=== PATIENT | female | born 1955 | race Caucasian/White ===

== ENCOUNTER 2023-06-14 08:20 | Day surgery (SDC) | payer MEDICARE, SELFPAY ==
[2023-06-13 14:20] VITALS: BMI 31.8
[2023-06-14] VITALS (10 sets, daily range): BP systolic 114–149; BP diastolic 72–96; PULSE 66–85; RESP 14–18; TEMP 36.4; O2SAT 97–100; BMI 33.0
[2023-06-14 09:03] LABS: Basophils Percent Auto 0.3 % (0.2-1.2); Eosinophils Absolute Auto 0.1 K/mm3 (0-0.3); Eosinophils Percent Auto 1.3 % (0-4.4); Hematocrit 43.9 % (37.0-47.0); Hemoglobin 14.1 g/dL (12.0-15.0); Immature Granulocyte Absolute 0.04 K/mm3 (0.00-0.031); Immature Granulocyte Percent A 0.4 % (0-0.5); Lymphocytes Absolute Auto 1.93 K/mm3 (0.9-3.2); Lymphocytes Percent Auto 20.9 % (18.3-44.2); Mean Corpuscular HGB Conc 32.1 g/dl (32-36); Mean Corpuscular Hemoglobin 29.9 pg (26-34); Mean Corpuscular Volume 93.2 fl (80-100); Mean Platelet Volume 10.9 fl (7.4-10.4); Monocytes Absolute Auto 0.9 K/mm3 (0.1-0.6); Monocytes Percent Auto 10.2 % (2.6-8.5); Neutrophils Absolute Auto 6.2 K/mm3 (1.3-6.7); Neutrophils Percent Auto 66.9 % (45.5-73.1); Platelet Count Result 269 k/mm3 (150-375); Red Blood Count 4.71 M/mm3 (4.2-5.4); Red Cell Distribution Width 13.2 % (11.5-14.5); White Blood Count 9.3 K/mm3 (4.5-10.0)
[2023-06-14 09:15] LABS: Anion Gap 7 mmol/L (8-16); Blood Urea Nitrogen 9 mg/dL (7-17); Calcium 9.6 mg/dL (8.4-10.2); Carbon Dioxide 24 mmol/L (22-30); Chloride 109 mmol/L (98-107); Estimated CRCL calculation 81 ml/min; Estimated Glomerular Filt Rate > 60; Glucose 113 mg/dL (65-110); Sodium 140 mmol/L (137-145)
--- NOTE | 2023-06-14 09:38 | WPDHPUPDATE1 ---
History and Physical Update Update Date/Time: 06/14/23 09:38 History and Physical has been reviewed, including an updated exam of the patient. There are NO changes in the patient's condition. Risks, benefits, and alternatives have been discussed and questions answered. Patient agrees to proceed with procedure.
--- NOTE | 2023-06-14 09:38 | WPDMODSED ---
Moderate Sedation Note-Pt Data Patient Data Diagnosis: Abnormal CCTA Present Complaint: Abnormal CCTA Procedure to be performed/Plan: Coronary angiography, left heart cath, +/- PCI Allergies Allergy/AdvReac Type Severity Reaction Status Date / Time No Known Allergies Allergy Verified 06/14/23 08:35 Home Medications Medication Instructions Recorded Confirmed Type gabapentin 300 mg capsule 600 mg PO HS 11/03/20 06/13/23 History letrozole 2.5 mg tablet 2.5 mg PO DAILY 11/03/20 06/13/23 History omeprazole 20 mg capsule,delayed 20 mg PO DAILY 11/03/20 06/13/23 History release cyanocobalamin (vitamin B-12) 2,000 mcg PO DAILY 11/16/20 06/13/23 History 2,000 mcg tablet ergocalciferol (vitamin D2) 25,000 50,000 unit PO WEEKLY 11/16/20 06/13/23 History unit capsule levothyroxine 125 mcg tablet 100 mcg PO DAILY 11/16/20 06/13/23 History amlodipine 5 mg-valsartan 160 mg 1 tablet PO DAILY 06/13/23 06/13/23 History tablet metoprolol succinate 50 mg 50 mg PO DAILY 06/13/23 06/13/23 History tablet,extended release 24 hr Sedation/Anesthesia: No previous sedation/anesthesia problems (including family history). [facility] Family History Family History Father Alcoholism Heart disease Mother Hypertension Heart disease Grandparent Heart disease Social History Social History Smoking status: Never smoker Second hand tobacco smoke exposure: No Alcohol intake: never Substance use: never Substance use type: does not use Living arrangements: with family Spiritual care concerns: No Mod Sed Physical Exam Physical Exam Pre Procedural Exam: Normal: Appearance, Lungs, Heart Rate, Heart Rhythm, Neuro Exam, Abdomen, Extremities and Skin Hours since solid foods: 12 Hours since liquid intake: 8 Mallampati Classification: class III Internal Medicine - PN: Obj Da Vital Signs Vital Signs: Vital Signs - 24 hr 06/14/23 08:37 Temperature 36.4 C Pulse Rate 74 Respiratory Rate 16 Blood Pressure 149/96 H Pulse Oximetry 98 Oxygen Delivery Room Air Labs 06/14/23 08:40 06/14/23 08:40 Labs: Laboratory Results - last 24 hr 06/14/23 08:40 WBC 9.3 RBC 4.71 Hgb 14.1 Hct 43.9 MCV 93.2 MCH 29.9 MCHC 32.1 RDW 13.2 Plt Count 269 MPV 10.9 H Immature Gran % (Auto) 0.4 Neut % (Auto) 66.9 Lymph % (Auto) 20.9 Cass % (Auto) 10.2 H Eos % (Auto) 1.3 Baso % (Auto) 0.3 Lymph # (Auto) 1.93 Cass # (Auto) 0.9 H Eos # (Auto) 0.1 Baso # (Auto) 0.0 Abs Immat Gran (auto) 0.04 H Absolute Neuts (auto) 6.2 Absolute Nucleated RBC 0.0 Nucleated RBC % 0.0 Sodium 140 Potassium 4.0 Chloride 109 H Carbon Dioxide 24 Anion Gap 7 L BUN 9 Creatinine 0.70 Estim Creat Clear Calc 81 Estimated GFR > 60 Glucose 113 H Calcium 9.6 ASA Classification/Sedation ASA Classification/Sedation ASA Class: II Emergent: No Risks: Risks, benefits and alternatives explained and patient/family accepted plan for sedation. Patient re-evaluated immediately prior to sedation.
--- NOTE | 2023-06-14 09:39 | P.PCNCC_ITS ---
Cardiac Cath Procedure Note Date of procedure:: 06/14/23 Performing physician:: CATHETERIZATION LABORATORY REPORT Procedure Date: 06/14/2023 Cable Installation Manager: Cayden Khan M.D., [facility]? Referring Physician: Cayden Khan M.D. ? Anesthesia: Versed and Fentanyl were ordered and given in my presence at 09:57, procedure ended at 10:16. Supervision of nurse monitored moderate sedation with Versed and Fentanyl was provided for 19 minutes. Total of Versed 2mg and Fentanyl 50mcg were administered by the Environmental Issues Instructor RN Faiza Morgan. Pre-op Diagnosis: Coronary artery disease Post-op Diagnosis: 1. Mild non-obstructive coronary artery disease 2. 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 Left-dominant coronary artery system Procedure(s): 1. Moderate sedation 2. Ultrasound-guided access of the right radial artery 3. Coronary angiography Access Site: Right radial artery Brief History and Clinical Indications: Patient is a 68 year old female who is referred for [facility] for anginal symptoms and abnormal coronary CTA. All risks, benefits and alternatives to left heart catheterization with or without percutaneous coronary intervention was discussed at length with the patient. Risk of complications including but not limited to bleeding, infection, arrhythmia, stroke, worsening kidney function, blood loss, groin hematoma, limb loss, emergency coronary artery bypass grafting, and even were discussed with the patient and all questions were answered. The patient understood and wished to proceed. Time out called, patient name, date of , medical record number, allergies, procedure performed, identify Cable Installation Manager, patient and staff member concurred with accurate data, procedure carried on. Findings: LEFT HEART CATHETERIZATION FINDINGS: 1. Left main: No left main. The LAD and LCX have separate ostia. 2. Left anterior descending: The LAD has mild disease in its mid portion. The first diagonal branch has mild diffuse disease. No significant obstructive angiographic disease. 3. Left circumflex: The left circumflex is the dominant vessel. There is mild disease in the mid portion of LCX. OM-1 has mild disease in its proximal portion. No significant obstructive angiographic disease. 4. Right coronary artery: The RCA is the non-dominant vessel. The RCA has mild disease in the mid portion. No significant obstructive angiographic disease. Description of Procedure: Informed consent signed and placed in the chart. Patient transferred to laborer [facility] room. Prepped and draped in usual sterile fashion. 2% lidocaine injected subcutaneously in right wrist area. 22-gauge venipuncture catheter used to access the right radial artery under ultrasound guidance. 6-FR slender sheath placed in right radial artery. Nitroglycerine and Verapamil were given intraarterial through the sheath. Versacore wire advanced under fluoroscopy 5F Tig 4 diagnostic catheter engaged in LCX and LAD. 5F Tig 4 diagnostic catheter engaged Right Coronary Artery Multiple orthogonal angiogram obtained and reviewed Hemostasis was achieved by application of TR band. Post Operative Condition: Stable No significant blood loss Disposition: Home Plan: The patient will be monitored in the recovery area. Discharge home after post cath bed rest is completed. Continue aggressive medical therapy and risk factor modification. ? Cayden Khan M.D. Interventional Cardiology
== END 2023-06-14 13:30 | disposition home or self-care (01) ==
PROVIDERS: PCP Registered Nurse; Visit Provider Internal Medicine
PROC: (CPT 93454; principal; 2023-06-14 10:00)
DX: I25.10 Atherosclerotic heart disease of native coronary artery without angina pectoris (principal); R93.1 Abnormal findings on diagnostic imaging of heart and coronary circulation; I10 Essential (primary) hypertension; E78.5 Hyperlipidemia, unspecified; Z79.811 Long term (current) use of aromatase inhibitors
CPT/HCPCS: 36415; 80048; 85025; 93454; A9270; C1769; C1887; C1894; J1644; J2250; J3010; J7040